=== PATIENT | female | born 1990 | race African-American/Black ===

== ENCOUNTER 2018-06-12 14:58 | Emergency (ER) | payer OTHER ==
[2018-06-12 15:04] VITALS: BP 99/48; PULSE 89; TEMP 98.9; BMI 26.9
[2018-06-12] MEDS ORDERED: ACETAMINOPHEN 1000 MG/100 ML VIAL (NON FORMULARY) IVPB ONE (17:08)
[2018-06-12] MEDS ORDERED: SODIUM CHLORIDE 0.9% 500 ML INFUS.BAG IV ONE (17:08)
[2018-06-12 17:30] LABS: URINE APPEARANCE CLEAR; URINE BILIRUBIN NEGATIVE (<2.0 mg/dL); URINE COLOR LTYELLOW; URINE GLUCOSE (UA) NEGATIVE (NEGATIVE); URINE KETONE TRACE (NEGATIVE); URINE LEUK ESTERASE NEGATIVE (NEGATIVE); URINE NITRITE NEGATIVE (NEGATIVE); URINE PROTEIN NEGATIVE (NEGATIVE); URINE UROBILINOGEN NEGATIVE mg/dL (0.2-1.0)
--- NOTE | 2018-06-12 18:19 | PDOC ---
History of Present Illness - General Chief Complaint: Migraine Headache Stated Complaint: HEADACHE Time Seen by Provider: 06/12/18 17:04 - History of Present Illness Initial Comments: 27-year-old 26 week gravid female presents for evaluation of migraine headache 5 days unrelieved with by mouth Tylenol this morning. She was cleared by ADMISSION SPECIALIST prior to the emergency room evaluation 06/12/18 18:18 Past History - Past Medical History Allergies/Adverse Reactions: Allergies Allergy/AdvReac Type Severity Reaction Status Date / Time No Known Allergies Allergy Verified 06/12/18 15:01 Home Medications: Ambulatory Orders Ferrous Sulfate [Iron] 325 mg PO DAILY 05/03/18 Vitamins (Sjr) - 1 tab PO DAILY 05/03/18 COPD: No Other medical history: vascular migraines - Suicide/Smoking/Psychosocial Hx Smoking History: Never smoked Review of Systems - Review of Systems Neurological: Yes: See HPI, Headache *Physical Exam - Vital Signs Last Vital Signs Temp Pulse Resp BP Pulse Ox 98.9 F 89 18 99/48 L 100 06/12/18 15:02 06/12/18 15:02 06/12/18 15:02 06/12/18 15:02 06/12/18 15:02 - Physical Exam Comments: HEAD: NC/AT EYES: Conjuntiva clear Ears: Canals and TM's normal NOSE: No d/c THROAT: Moist mucous membrances, oral pharanx clear, uvula midline NECK: Supple without adenopathy CARDIAC: S1 S2 LUNGS: CTA Full and Equal breath sounds ABDOMEN: Soft NT ND MS: Full ROM in all joints without edema NEUROLOGIC: No gross sensory or motor deficits, NVID SKIN: Normal color and temperature no lesions or rashes 06/12/18 18:19 ED Treatment Course - ADDITIONAL ORDERS Additional order review: Laboratory Results 06/12/18 17:00 Urine Color Ltyellow Urine Appearance Clear Urine pH 7.0 Ur Specific [place] 1.014 Urine Protein Negative Urine Glucose (UA) Negative Urine Ketones Trace H Urine Blood Negative Urine Nitrite Negative Urine Bilirubin Negative Urine Urobilinogen Negative Ur Leukocyte Esterase Negative - Medications Given in the ED: ED Medications Discontinued Medications Generic Name Dose Route Start Last Admin Trade Name Freq PRN Reason Stop Dose Admin Acetaminophen 1,000 mg 06/12/18 17:08 06/12/18 17:35 Ofirmev Injection - IVPB 06/12/18 17:09 1,000 mg ONCE ONE Administration Sodium Chloride 1,000 ml 06/12/18 17:08 06/12/18 17:25 Normal Saline - IV 06/12/18 17:09 1,000 ml ONCE ONE Administration *DC/Admit/Observation/Transfer Diagnosis at time of Disposition: Migraine - Discharge Dispostion Disposition: HOME Condition at time of disposition: Stable Decision to Admit order: No - Referrals Referrals: Onur Gonzalez MD [Staff Physician] - - Patient Instructions Printed Discharge Instructions: DI for Migraine, Migraine -- Adult Additional Instructions: Return to the emergency room should symptoms worsen or go unresolved. Please follow-up with neurology for further evaluation and treatment options. Follow- up in one to 2 days. - Post Discharge Activity
== END 2018-06-12 18:24 | disposition home or self-care (01) ==
LOC: JERFT 14:58 → JER 14:58 → JERFT 18:24
PROC: 3E033NZ Introduction of Analgesics, Hypnotics, Sedatives into Peripheral Vein, Percutaneous Approach (ICD-10-PCS; principal; 2018-06-12)
DX: O26.892 Other specified pregnancy related conditions, second trimester (principal); G43.909 Migraine, unspecified, not intractable, without status migrainosus; Z3A.26 26 weeks gestation of pregnancy
CPT/HCPCS: 59025; 81003; 99281-25; J0131

== ENCOUNTER 2018-09-21 11:30 | Inpatient (IN) | payer OTHER ==
[~2018-09-21 11:30] MED LIST: DINOPROSTONE 10 MG VAGINAL SUPPOSITORY VG ONE
[2018-09-21 12:24] VITALS: BMI 26.9
[2018-09-21 12:57] LABS: BASO % 0.6 % (0-2.0); EOS % 0.6 % (0-4.5); HEMATOCRIT 33.6 % (32.4-45.2); HEMOGLOBIN 11.7 GM/dL (10.7-15.3); LYMPH % 21.1 % (8-40); MCH 29.5 pg (25.7-33.7); MCHC 34.8 g/dl (32.0-36.0); MEAN CELL VOLUME 84.6 fl (80-96); MEAN PLT VOLUME 10.6 fl (7.5-11.1); MONO % 7.8 % (3.8-10.2); NEUT % 69.9 % (42.8-82.8); PLATELET COUNT 159 K/MM3 (134-434); RBC 3.97 M/mm3 (3.60-5.2); RDW 14.2 % (11.6-15.6); WHITE BLOOD COUNT 5.6 K/mm3 (4.0-10.0)
[2018-09-21 13:10] LABS: PROTHROMBIN TIME (PATIENT) 11.8 SEC (9.7-13.0)
[2018-09-21 13:12] LABS: ACTIVATED PTT 28.8 SECONDS (25.2-36.5)
[2018-09-21 13:31] LABS: ANION GAP 11 MMOL/L (8-16); BLOOD UREA NITROGEN 5 mg/dL (7-18); CALCIUM 8.5 mg/dL (8.5-10.1); CHLORIDE 104 mmol/L (98-107); CO2 20 mmol/L (21-32); CREATININE 0.6 mg/dL (0.55-1.3); GLUCOSE,RANDOM 117 mg/dL (74-106); POTASSIUM 3.5 mmol/L (3.5-5.1); SODIUM 135 mmol/L (136-145)
[2018-09-21] MEDS ORDERED: BUPIVACAINE HCL/PF 0.25% (2.5MG/ML) 10 ML VIAL ONE (13:43)
--- NOTE | 2018-09-21 14:38 | PN ---
Progress Note (short form) - Note Progress Note: 230 pm cx 2 cm, 50 vx -3 mi, fhr cat 1, no contraction , cervidil rba discussed , cervidil inserted
[2018-09-21] MEDS ORDERED: PROMETHAZINE HCL 25 MG/1 ML VIAL IVPB ONE (14:53)
[2018-09-21] MEDS ORDERED: BUTORPHANOL TARTRATE 1 MG/ML VIAL IVPB PRN (14:53)
--- NOTE | 2018-09-21 15:00 | HP ---
Past Medical History - Primary Care Physician PCP:: Phan Major - Admission Chief Complaint: 40.2 weeks, for cervidil induction History of Present Illness: 28 yo f 40.1 weeks, with previous hx of LGA delivery admitted for cervidil induction cx 2 cm ,50, vx -3 mi, fhr cat 1, no contraction. rba to cervidil discussed History Source: Patient Limitations to Obtaining History: No Limitations - Past Medical History ...: 3 ...Para: 2 ...Term: 2 ...: 0 ...Spon : 0 ...Induced : 0 ...Multiple Gestation: 0 ...LMP: 12/06/17 ... Weeks Gestation by Dates: 41.2 ...EDC by Dates: 09/12/18 ...EDC by Sono: 09/20/18 Heme/Onc: Yes: Anemia - Smoking History Smoking history: Never smoked Have you smoked in the past 12 months: No - Alcohol/Substance Use Hx Alcohol Use: No - Social History History of Recent Travel: No Home Medications - Allergies Allergies/Adverse Reactions: Allergies Allergy/AdvReac Type Severity Reaction Status Date / Time No Known Allergies Allergy Verified 09/21/18 12:27 - Home Medications Home Medications: Ambulatory Orders Ferrous Sulfate [Iron] 325 mg PO DAILY 05/03/18 Vitamins (Sjr) - 1 tab PO DAILY 05/03/18 Review of Systems - Review of Systems Constitutional: reports: No Symptoms Eyes: reports: No Symptoms HENT: reports: No Symptoms Neck: reports: No Symptoms Cardiovascular: reports: No Symptoms Respiratory: reports: No Symptoms Gastrointestinal: reports: No Symptoms Genitourinary: reports: No Symptoms Breasts: reports: No Symptoms Reported Musculoskeletal: reports: No Symptoms Integumentary: reports: No Symptoms Neurological: reports: No Symptoms Endocrine: reports: No Symptoms Hematology/Lymphatic: reports: No Symptoms Psychiatric: reports: No Symptoms Physical Exam - Maternity Vital Signs: Vital Signs Temperature 98.7 F 09/21/18 14:00 Pulse Rate 104 H 09/21/18 14:00 Respiratory Rate 20 09/21/18 14:00 Blood Pressure 122/68 09/21/18 14:00 O2 Sat by Pulse Oximetry (%) Constitutional: Yes: Well Nourished, No Distress, Calm Eyes: Yes: WNL, Conjunctiva Clear, EOM Intact HENT: Yes: WNL, Atraumatic, Normocephalic Neck: Yes: WNL, Supple, Trachea Midline Cardiovascular: Yes: WNL, Regular Rate and Rhythm Breast(s): Yes: WNL - Abdominal Exam/OB Fundal Height: 40 Number of Fetuses: Single Presentation: Vertex Contractions: No Intensity: Unaware Monitor Mode: External Heart Rate Location: [facility] Category: I Accelerations: Uniform Decelerations: None - Vaginal Exam/OB Vaginal Bleediing: No Speculum Exam: No Dilatation (cm): 2 cm Effacement (%): 50 Amniotic Membrane Status: Intact Presentation: Vertex/Position Station: -3 - Physical Exam Musculoskeletal: Yes: WNL Extremities: Yes: WNL Edema: Yes Edema: LLE: Trace, RLE: Trace Deep Tendon Reflex Grade: Normal +2 Psychiatric: Yes: WNL - Labs Lab Results: CBC, BMP 09/21/18 12:35 09/21/18 12:35 Hemorrhage Risk Assessment - Risk Factors Risk Score: 1 Risk Level: Medium Risk Problem List - Problems (1) Post term over 40 weeks Code(s): O48.0 - POST-TERM (2) Elective induction of labor planned Code(s): CWF9690 - Assessment/Plan admit, fhm, cervidil induction, pain management
[2018-09-21] MEDS ORDERED: BUTORPHANOL TARTRATE 1 MG/ML VIAL IVPUSH PRN (15:19)
[2018-09-21] MEDS ORDERED: LACTATED RINGERS SOLUTION 1,000 ML IV SCH ×2 (21:15→23:15)
[2018-09-21] MEDS ORDERED: PROMETHAZINE HCL 25 MG/1 ML VIAL ONE (21:26)
[2018-09-21] MEDS ORDERED: BUTORPHANOL TARTRATE 1 MG/ML VIAL ONE ×2 (21:26)
[2018-09-22] MEDS ORDERED: FENTANYL/BUPIVACAINE/NS/PF - PCEA - 50 ML DISP.SYRIN EP ONE (00:21)
[2018-09-22] MEDS ORDERED: LIDO 2%/EPI 1:200000 PRESRVFRE (20 ML SDVIAL) ONE ×2 (00:26→04:10)
[2018-09-22] MEDS ORDERED: BUPIVACAINE HCL/PF 0.25% (2.5MG/ML) 10 ML VIAL ONE (00:26)
[2018-09-22] MEDS ORDERED: ELECTROLYTE-148 SOLN 1,000 ML IV SCH (00:30)
[2018-09-22] MEDS: FENTANYL/BUPIVACAINE/NS/PF - PCEA - 50 ML DISP.SYRIN EP SCH (00:45)
[2018-09-22] MEDS ORDERED: NALOXONE HCL 0.4 MG/ML VIAL IVPUSH PRN (00:55)
--- NOTE | 2018-09-22 01:23 | PN ---
Progress Note (short form) - Note Progress Note: had deep variable after epidural, cx 5 cm 70 vx -3 mi, cervidil removed , lt side , o2 , increase iv fluid , revaluate Problem List - Problems (1) Post term over 40 weeks Code(s): O48.0 - POST-TERM (2) Elective induction of labor planned Code(s): [id number] -
--- NOTE | 2018-09-22 01:40 | PN ---
Progress Note (short form) - Note Progress Note: 6 cm 70 vx -2 bulging membrane arom, clear,good BTB variability, rt side Problem List - Problems (1) Post term over 40 weeks Code(s): O48.0 - POST-TERM (2) Elective induction of labor planned Code(s): UCQ2450 -
[2018-09-22] MEDS ORDERED: CITRIC ACID/SODIUM CITRATE 30 ML UNIT-DOSE CUP PO ONE (04:08)
[2018-09-22] MEDS ORDERED: METHYLERGONOVINE MALEATE 0.2 MG/1 ML AMP IM PRN (04:08)
[2018-09-22] MEDS ORDERED: WITCH HAZEL 50% (TUCKS) 40 PAD/JAR PAD TP PRN (04:08)
[2018-09-22] MEDS ORDERED: BENZOCAINE 28 GM HEMORRHOIDAL OINTMENT PR PRN (04:08)
[2018-09-22] MEDS ORDERED: diphenhydrAMINE HCL 25 MG CAPSULE (FP) PO PRN (04:08)
[2018-09-22] MEDS ORDERED: BENZOCAINE 20% 57 GM BOTTLE TP PRN (04:08)
--- NOTE | 2018-09-22 04:08 | PN ---
Progress Note (short form) - Note Progress Note: continue to have deep variable cx 9 cm ,80 vx -2, no descent with pushing , advised c/s, risks discussed Problem List - Problems (1) Post term over 40 weeks Code(s): O48.0 - POST-TERM (2) Elective induction of labor planned Code(s): [id number] -
[2018-09-22] MEDS ORDERED: OXYTOCIN 20 UNITS in 0.9% NS 20 UNIT/1,000 ML INFUS.BAG IV SCH (04:15)
[2018-09-22] MEDS ORDERED: DEXTROSE 5%-LACTATED RINGERS 1,000 ML IV SCH (04:15)
[2018-09-22] MEDS ORDERED: ACETAMINOPHEN 325 MG TABLET (FP) PO PRN (04:54)
[2018-09-22] MEDS ORDERED: IBUPROFEN 600 MG TABLET (FP) PO PRN (04:54)
[2018-09-22 05:14] LABS: ARTERIAL BLD GAS O2 SATURATION 15.1 % (90-98.9); ARTERIAL BLOOD GAS BASE EXCESS -2.9 meq/l (-2-2); ARTERIAL BLOOD GAS PCO2 64.7 mmHg (35-45); ARTERIAL BLOOD GAS PO2 14.6 mmHg (80-100); ARTERIAL BLOOD GAS pH 7.23 (7.35-7.45)
[2018-09-22] MEDS: OXYTOCIN 20 UNITS in 0.9% NS 20 UNIT/1,000 ML INFUS.BAG IV SCH ×2 (05:20→17:00)
[2018-09-22 05:23] LABS: VENOUS PC02 59.6 mmHg (38-52); VENOUS PH 7.25 (7.32-7.42); VENOUS PO2 12.7 mmHg (28-48)
[2018-09-22] MEDS ORDERED: OXYTOCIN 20 UNITS in 0.9% NS 20 UNIT/1,000 ML INFUS.BAG IV ONE (05:26)
[2018-09-22] MEDS ORDERED: IBUPROFEN 800 MG/8 ML IJ IVPB ONE (05:52)
[2018-09-22] MEDS: IBUPROFEN 800 MG/8 ML IJ IVPB PRN ×2 (06:00→17:14)
[2018-09-22] MEDS: CEFAZOLIN 1 GM/D5W 1 GM/50 ML BAG IVPB SCH ×2 (12:12→20:38)
[2018-09-22] MEDS: SIMETHICONE 80 MG TAB.CHEW (FP) PO PRN (23:21)
[2018-09-22] MEDS: ACETAMINOPHEN 325 MG TABLET (FP) PO PRN (23:24)
[2018-09-23] MEDS ORDERED: BISACODYL 10 MG SUPP.RECT PR PRN (04:08)
[2018-09-23] MEDS: FENTANYL/BUPIVACAINE/NS/PF - PCEA - 50 ML DISP.SYRIN EP SCH (06:53)
[2018-09-23 07:15] LABS: BASO % 0.3 % (0-2.0); EOS % 0.5 % (0-4.5); HEMATOCRIT 30.7 % (32.4-45.2); HEMOGLOBIN 9.7 GM/dL (10.7-15.3); LYMPH % 12.1 % (8-40); MCH 27.5 pg (25.7-33.7); MCHC 31.6 g/dl (32.0-36.0); MEAN CELL VOLUME 87.1 fl (80-96); MEAN PLT VOLUME 9.9 fl (7.5-11.1); MONO % 6.1 % (3.8-10.2); PLATELET COUNT 120 K/MM3 (134-434); RBC 3.53 M/mm3 (3.60-5.2); RDW 14.6 % (11.6-15.6); WHITE BLOOD COUNT 10.1 K/mm3 (4.0-10.0)
[2018-09-23] MEDS: IBUPROFEN 600 MG TABLET (FP) PO PRN ×4 (07:58→20:10)
[2018-09-23] MEDS: oxyCODONE HCL 5 MG TABLET PO PRN ×4 (07:59→20:11)
[2018-09-23] MEDS: SIMETHICONE 80 MG TAB.CHEW (FP) PO PRN ×4 (07:59→20:10)
--- NOTE | 2018-09-23 15:07 | PN ---
Progress Note (short form) - Note Progress Note: Anesthesiology Post-op 28 y.o. woman POD#1 s/p C/S with spinal anesthesia. Pt. is feeling well. She is able to walk as well as void without difficulty. She denies h/a. Pain is under control. VSS. 28 y.o. woman with stable post-operative course, no anesthesia-related issues. Continue Management as per primary team.
[2018-09-23] MEDS: SENNOSIDES/DOCUSATE COMBO (SENNA PLUS) TABLET (UD) PO PRN (20:10)
[2018-09-24] MEDS: SIMETHICONE 80 MG TAB.CHEW (FP) PO PRN ×4 (00:16→19:07)
[2018-09-24] MEDS: oxyCODONE HCL 5 MG TABLET PO PRN ×4 (00:16→19:07)
[2018-09-24] MEDS: IBUPROFEN 600 MG TABLET (FP) PO PRN ×2 (00:18→19:08)
[2018-09-24] MEDS: ACETAMINOPHEN 325 MG TABLET (FP) PO PRN ×2 (07:44→12:09)
--- NOTE | 2018-09-24 16:16 | PN ---
Post Progress Note Type of Delivery: Primary C/S Vital Signs: Vital Signs Temperature 99.3 F 09/24/18 10:00 Pulse Rate 95 H 09/24/18 10:00 Respiratory Rate 20 09/24/18 10:00 Blood Pressure 109/63 09/24/18 10:00 O2 Sat by Pulse Oximetry (%) 100 09/22/18 21:00 Uterus: Yes: Fundus below umbilicus Incision: Yes: Dressing dry and intact Abdomen/GI: Yes: Abdomen soft Lochia: Yes: Rubra Lochia, amount: Small Extremities: Yes: Calves non-tender Perineum: Yes: Intact Activity: Ambulating (Tolerating po. Passed flatus. Ambulating without difficulty) - Labs Labs: CBC WBC 10.1 K/mm3 (4.0-10.0) H 09/23/18 06:15 RBC 3.53 M/mm3 (3.60-5.2) L 09/23/18 06:15 Hgb 9.7 GM/dL (10.7-15.3) L 09/23/18 06:15 Hct 30.7 % (32.4-45.2) L 09/23/18 06:15 MCV 87.1 fl (80-96) 09/23/18 06:15 MCH 27.5 pg (25.7-33.7) 09/23/18 06:15 MCHC 31.6 g/dl (32.0-36.0) L 09/23/18 06:15 RDW 14.6 % (11.6-15.6) 09/23/18 06:15 Plt Count 120 K/MM3 (134-434) L D 09/23/18 06:15 MPV 9.9 fl (7.5-11.1) 09/23/18 06:15 Absolute Neuts (auto) 8.2 K/mm3 (1.5-8.0) H 09/23/18 06:15 Neutrophils % 81.0 % (42.8-82.8) 09/23/18 06:15 Lymphocytes % 12.1 % (8-40) D 09/23/18 06:15 Monocytes % 6.1 % (3.8-10.2) 09/23/18 06:15 Eosinophils % 0.5 % (0-4.5) 09/23/18 06:15 Basophils % 0.3 % (0-2.0) 09/23/18 06:15 Nucleated RBC % 0 % (0-0) 09/23/18 06:15 Assessment/Plan 28yo s/p PLTCS, POD#2 Routine PP care OOB, ambulate Labs reviewed Anticipate d/c to home by POD#4 Cecilia Lynn MD
[2018-09-24] MEDS: SENNOSIDES/DOCUSATE COMBO (SENNA PLUS) TABLET (UD) PO PRN (19:07)
[2018-09-25 08:14] LABS: BASO % 0.5 % (0-2.0); EOS % 1.5 % (0-4.5); HEMATOCRIT 27.2 % (32.4-45.2); HEMOGLOBIN 9.4 GM/dL (10.7-15.3); MCH 29.5 pg (25.7-33.7); MCHC 34.5 g/dl (32.0-36.0); MEAN CELL VOLUME 85.6 fl (80-96); MEAN PLT VOLUME 10.1 fl (7.5-11.1); MONO % 9.1 % (3.8-10.2); NEUT % 57.9 % (42.8-82.8); PLATELET COUNT 159 K/MM3 (134-434); RBC 3.18 M/mm3 (3.60-5.2); RDW 14.1 % (11.6-15.6); WHITE BLOOD COUNT 5.2 K/mm3 (4.0-10.0)
[2018-09-25] MEDS: SIMETHICONE 80 MG TAB.CHEW (FP) PO PRN ×2 (08:21→12:17)
[2018-09-25] MEDS: IBUPROFEN 600 MG TABLET (FP) PO PRN ×2 (08:22→12:17)
[2018-09-25] MEDS: ACETAMINOPHEN 325 MG TABLET (FP) PO PRN ×2 (08:22→12:17)
--- NOTE | 2018-09-25 09:30 | PN ---
Post Progress Note Type of Delivery: Primary C/S Vital Signs: Vital Signs Temperature 97.9 F 09/24/18 19:11 Pulse Rate 96 H 09/24/18 19:11 Respiratory Rate 20 09/24/18 19:11 Blood Pressure 128/80 09/24/18 19:11 O2 Sat by Pulse Oximetry (%) 100 09/22/18 21:00 Uterus: Yes: Fundus Firm Incision: Yes: Dressing dry and intact, [place] intact Abdomen/GI: Yes: Abdomen soft Lochia: Yes: Rubra Lochia, amount: Small Extremities: Yes: Calves non-tender Perineum: Yes: Intact Activity: Ambulating - Labs Labs: CBC WBC 5.2 K/mm3 (4.0-10.0) 09/25/18 06:30 RBC 3.18 M/mm3 (3.60-5.2) L 09/25/18 06:30 Hgb 9.4 GM/dL (10.7-15.3) L 09/25/18 06:30 Hct 27.2 % (32.4-45.2) L 09/25/18 06:30 MCV 85.6 fl (80-96) 09/25/18 06:30 MCH 29.5 pg (25.7-33.7) 09/25/18 06:30 MCHC 34.5 g/dl (32.0-36.0) 09/25/18 06:30 RDW 14.1 % (11.6-15.6) 09/25/18 06:30 Plt Count 159 K/MM3 (134-434) D 09/25/18 06:30 MPV 10.1 fl (7.5-11.1) 09/25/18 06:30 Absolute Neuts (auto) 3.0 K/mm3 (1.5-8.0) 09/25/18 06:30 Neutrophils % 57.9 % (42.8-82.8) D 09/25/18 06:30 Lymphocytes % 31.0 % (8-40) D 09/25/18 06:30 Monocytes % 9.1 % (3.8-10.2) 09/25/18 06:30 Eosinophils % 1.5 % (0-4.5) D 09/25/18 06:30 Basophils % 0.5 % (0-2.0) 09/25/18 06:30 Nucleated RBC % 0 % (0-0) 09/25/18 06:30 Assessment/Plan 28yo s/p PLTCS, POD#3 Routine PP care OOB, ambulate Labs reviewed Anticipate d/c to home by POD#4 Cecilia Lynn MD
[2018-09-25 10:24] VITALS: BP 131/80; PULSE 89; TEMP 98.5
[2018-09-25] MEDS: SENNOSIDES/DOCUSATE COMBO (SENNA PLUS) TABLET (UD) PO PRN (12:21)
--- NOTE | 2018-09-25 17:26 | DS ---
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 Vital Signs: Vital Signs Temperature 98.5 F 09/25/18 10:00 Pulse Rate 89 09/25/18 10:00 Respiratory Rate 20 09/25/18 10:00 Blood Pressure 131/80 09/25/18 10:00 O2 Sat by Pulse Oximetry (%) 100 09/22/18 21:00 Constitutional: Yes: Well Nourished, No Distress, Calm Eyes: Yes: WNL, Conjunctiva Clear, EOM Intact HENT: Yes: WNL, Atraumatic, Normocephalic Neck: Yes: WNL, Supple, Trachea Midline Cardiovascular: Yes: WNL, Regular Rate and Rhythm Respiratory: Yes: WNL, Regular, CTA Bilaterally Gastrointestinal: Yes: WNL ...Rectal Exam: Yes: WNL Renal/: Yes: WNL ....Post : Yes: Uterus firm, Uterus non-tender, Slight lochia rubra Breast(s): Yes: WNL Musculoskeletal: Yes: WNL Extremities: Yes: WNL Edema: No Integumentary: Yes: WNL Wound/Incision: Yes: Clean/Dry, Well Approximated, [place] Intact Neurological: Yes: WNL, Alert, Oriented ...Motor Strength: WNL Psychiatric: Yes: WNL, Alert, Oriented Labs: CBC, BMP 09/25/18 06:30 09/21/18 12:35 Delivery - Delivery Section: Primary, Low Flap Transverse (no complication) Type of Anesthesia: Epidural Episiotomy/Laceration: None EBL (cc): 500 Delivery, Single - Stages of Labor Date 1st Stage Initiatied: 09/22/18 Time 1st Stage Initiated: 21:30 Date of Delivery: 09/22/18 Time of Delivery: 04:26 Time Placenta Delivered: 04:27 Placenta: Yes: Expressed - Condition of Client Technologies Analyst/Dog Show 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 Present: No Infant Gender: Male Weight: 8 lb 1 oz Position: Left, OA Total Hours ROM (Hrs/Mins): 2HOUR/52MIN - 1 Minute Total Score: 9 5 Minutes Total Score: 9 - Feeding Plan Initial Plan: Exclusive throughout hospitalization Discharge Summary Reason For Visit: INDUCTION OF LABOR Procedures: Principal: primary LST c/s Hospital Course: no complication Condition: Stable - Instructions Diet, Activity, Other Instructions: Regular Diet Referrals: Phan Major MD [Staff Physician] - Disposition: HOME - Home Medications Comprehensive Discharge Medication List: Ambulatory Orders Ferrous Sulfate [Iron] 325 mg PO DAILY 05/03/18 Vitamins (Sjr) - 1 tab PO DAILY 05/03/18 Ibuprofen 600 mg PO Q6H PRN #30 tablet 09/25/18 Oxycodone HCl/Acetaminophen [Percocet 5-325 mg Tablet -] 1 - 2 tab PO Q6H PRN # 15 tab MDD 4 09/25/18
--- NOTE | 2018-09-26 11:34 | PATH ---
Surgical Pathology Report Patient Name: RAPHAEL POLANCO Med. Rec. 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 Specimen(s) Received PLACENTA Clinical History , 40.1 wks History of PCOS and pre-diabetes, history of migraines, x2 02/2011, 02/2013 Marginal cord insertion, left polydactyly Postoperative diagnosis: Nonreassuring heart rate Final Diagnosis PLACENTA, SECTION: 419 G THIRD TRIMESTER PLACENTA WITH TRIVASCULAR UMBILICAL CORD AND UNREMARKABLE PLACENTAL MEMBRANES. Electronically Signed Evon Morales M.D. Gross Description The specimen is received fresh labeled placenta and is a 419 gram, 15.0 x 15.0 x 2.5 cm. placenta with attached membranes and umbilical cord. The attached membranes are kohler, translucent with focal opacities and insert marginally. The umbilical cord measures 15 cm. in length and averages 1.0 cm. in diameter. The cord inserts eccentrically, 2 cm. to the nearest margin. No true knots or strictures are identified. Cut surface of the umbilical cord reveals 3 vessels. The surface is matthews-blue with minimal fibrin deposition and appropriate caliber vessels. The maternal surface is red-brown with focal defects. Sectioning reveals red-brown, spongy parenchyma. No lesions are identified. Director Of Publications sections are submitted in three cassettes as follows: 1- membrane rolls and umbilical cord; 2-3- full thickness sections of placenta. /09/25/2018 [facility]
--- NOTE | 2018-09-26 11:59 | OP ---
DATE OF OPERATION: 09/22/2018 PREOPERATIVE DIAGNOSIS: , postdate, Cervidil induction, non-reassuring heart rate. POSTOPERATIVE DIAGNOSIS: , postdate, Cervidil induction, non-reassuring heart rate. PROCEDURE: Primary low segment transverse section. SURGEON: Phan Major MD BEHAVIORAL SCIENCES INSTRUCTOR: RD Celestin ANESTHESIA: Spinal. ANESTHESIOLOGIST: Surendra Mcgee MD ESTIMATED BLOOD LOSS: 500 mL. OPERATION: The patient was taken to the operating room. Under adequate epidural anesthesia, abdomen and perineum were prepped and draped. Pfannenstiel abdominal skin incision was made. Abdominal wall was cut layer by layer until the peritoneum was exposed and incised. Upon entering the abdominal cavity, lower uterine segment was identified, and uterovesical fold of peritoneum was established, bladder was pushed down. Then, with the lower blade of the [place] retractor in the pelvis, a low transverse uterine incision was made. Incision extended laterally. Amniotic sac was entered. Clear fluid, head delivered, nasopharynx was suctioned. Live baby was delivered without any difficulty. There was a short cord with marginal insertion noted. Then, placenta was delivered manually. Then, uterine incision was closed in 2 layers, 1st layer with 0 Biosyn continuous suture, the 2nd layer with 0 Biosyn imbricating the 1st layer. Bladder flap was closed with 0 Biosyn continuous suture. Both tubes and ovaries were checked, were normal. No active bleeding was seen. All the lap pad, sponge count, and instrument count were correct. Then, peritoneum was closed with 0 Biosyn continuous suture, muscles were brought together with interrupted sutures of 0 Biosyn, fascia was closed with 0 Biosyn continuous suture, subcutaneous fat with interrupted suture of 0 Biosyn, and the skin was closed with savita. The patient tolerated the procedure well, left the OR in good condition. Tad [id number]
== END 2018-09-25 14:30 | disposition home or self-care (01) | DRG 371 ==
LOC: JLDR 11:30 → J3W 09-22 08:15
PROVIDERS: ADMIT Obstetrics & Gynecology; ATTEND Obstetrics & Gynecology
PROC: 10D00Z1 Extraction of Products of Conception, Low, Open Approach (ICD-10-PCS; principal; 2018-09-22)
DX: O48.0 Post-term pregnancy (principal); O76 Abnormality in fetal heart rate and rhythm complicating labor and delivery; Z3A.40 40 weeks gestation of pregnancy; Z37.0 Single live birth
CPT/HCPCS: 36415; 36600; 80048; 82803; 85025; 85610; 85730; 86593; 86850; 86900; 86901; 88307-TC